=== PATIENT | female | born 1995 | race African-American/Black ===

== ENCOUNTER 2017-06-18 22:03 | Emergency (ER) | payer OTHER ==
[2017-06-19 07:30] LABS: NEGATIVE OBC STREP NEG; POSITIVE OBC STREP POS
== END 2017-06-18 22:30 | disposition home or self-care (01) ==
LOC: ER 22:03
DX: J02.9 Acute pharyngitis, unspecified (principal); J34.89 Other specified disorders of nose and nasal sinuses; Z91.013 Allergy to seafood
CPT/HCPCS: 87070; 87880; 99283

== ENCOUNTER 2017-08-31 01:55 | Emergency (ER) | payer OTHER ==
[2017-08-31] MEDS: KETOROLAC 30 MG/ML INJ. IM (03:43)
[2017-08-31 03:46] LABS: URINE HCG POC HCG NEGATIVE (Negative)
== END 2017-08-31 03:51 | disposition home or self-care (01) ==
LOC: ER 01:55
DX: R09.81 Nasal congestion (principal); Z91.013 Allergy to seafood
CPT/HCPCS: 81025; 96372; 99283-25; J1885

== ENCOUNTER 2017-10-04 13:08 | Emergency (ER) | payer OTHER ==
[2017-10-05 07:02] LABS: NEGATIVE OBC STREP NEG; POSITIVE OBC STREP POS
== END 2017-10-04 13:54 | disposition home or self-care (01) ==
LOC: ER 13:54
DX: J02.9 Acute pharyngitis, unspecified (principal); Z91.013 Allergy to seafood
CPT/HCPCS: 87070; 87880; 99284

== ENCOUNTER 2017-10-17 20:23 | Emergency (ER) | payer OTHER ==
[2017-10-17] MEDS: HYDROcodon/APAP 7.5/325MG ORAL 15 ML SOLUTION PO (20:51)
[2017-10-17] MEDS: methylPREDNISolone SOD SUCC PF 125 MG/2 ML VIAL. IM (20:52)
== END 2017-10-17 21:30 | disposition home or self-care (01) ==
LOC: ER 20:23
DX: J02.9 Acute pharyngitis, unspecified (principal); Z91.013 Allergy to seafood
CPT/HCPCS: 96372; 99283; J2930

== ENCOUNTER 2018-02-04 23:21 | Emergency (ER) | payer OTHER ==
[~2018-02-04] VITALS: Ht 170.2 cm; Wt 77.1 kg
[~2018-02-04 23:21] MED LIST: AMOX400S2 PO; AMOX500C PO; METH4TAB2 PO
[2018-02-04 23:47] VITALS: BP 134/60
[2018-02-05] MEDS ORDERED: PRED20TA PO ×2 (00:07→00:10)
--- NOTE | 2018-02-05 00:08 | PHYS DOC ---
Past Medical History Past Medical History: No Pertinent History Additional Past Medical Histor: TONSILITIS Past Surgical History: Tonsillectomy, Other Additional Past Surgical Histo: THYROID Alcohol Use: Occasionally Drug Use: None Adult General Chief Complaint Chief Complaint: SKIN RASH/ABSCESS HPI HPI Patient is a 22 year old F who presents with bug bites to her extremities. Patient reports she woke up with them. Complains of itching. Review of Systems Review of Systems Integument: Reports multiple bug bites All other systems were reviewed and found to be within normal limits, except as documented in this note. Allergies Allergies Allergies Coded Allergies Type Severity Reaction Last Updated Verified Fish Containing Products Allergy Intermediate 08/31/17 Yes shellfish derived Allergy Intermediate 08/31/17 Yes Physical Exam Physical Exam Constitutional: Well developed, well nourished, no acute distress, non-toxic appearance. [] HENT: Normocephalic, atraumatic Eyes: PERRLA, EOMI, conjunctiva normal, no discharge. [] Neck: Normal range of motion, no tenderness, supple, no stridor. [] Skin: Warm, dry, multiple erythematous papules on extremities Neurologic: Alert and oriented X 3, normal motor function, normal sensory function, no focal deficits noted. [] Psychologic: Affect normal, judgement normal, mood normal. [] Current Patient Data Vital Signs Vital Signs Date Time Temp Pulse Resp B/P (MAP) Pulse Ox O2 Delivery O2 Flow Rate FiO2 02/04/18 23:47 98.5 87 18 134/60 (84) 97 Room Air 98.5 EKG EKG [] Radiology/Procedures Radiology/Procedures [] Course & Med Decision Making Course & Med Decision Making Pertinent Labs and Imaging studies reviewed. (See chart for details) Plan: prednisone rx, supportive care, f/u with PCP, return precautions reviewed Dragon Disclaimer Dragon Disclaimer This electronic medical record was generated, in whole or in part, using a voice recognition dictation system. Departure Departure Impression: Primary Impression: Insect bite Disposition: 01 HOME, SELF-CARE Condition: GOOD Referrals: NO PCP (PCP) Patient Instructions: Insect Bite Scripts Prednisone (PREDNISONE) 20 Mg Tablet 2 TAB PO DAILY, #10 TAB Prov: TAL CÁRDENAS MD 02/05/18 Prednisone (PREDNISONE) 20 Mg Tablet 40 MG PO DAILY, #10 TAB Prov: BTEH VALENTINO APRN 02/05/18 Problem Qualifiers Primary Impression: Insect bite Encounter type: initial encounter Qualified Codes: W57.XXXA - Bitten or stung by nonvenomous insect and other nonvenomous arthropods, initial encounter BETH VALENTINO ELASTIC YARN TWISTER Feb 05, 2018 00:08
== END 2018-02-05 00:32 | disposition home or self-care (01) ==
LOC: ER 23:21
DX: S40.862A Insect bite (nonvenomous) of left upper arm, initial encounter (principal); S40.861A Insect bite (nonvenomous) of right upper arm, initial encounter; S80.862A Insect bite (nonvenomous), left lower leg, initial encounter; S80.861A Insect bite (nonvenomous), right lower leg, initial encounter; Z91.013 Allergy to seafood; W57.XXXA Bitten or stung by nonvenomous insect and other nonvenomous arthropods, initial encounter; Y93.89 Activity, other specified; Y92.89 Other specified places as the place of occurrence of the external cause; Y99.8 Other external cause status
CPT/HCPCS: 99283

== ENCOUNTER 2018-03-09 12:17 | Emergency (ER) | payer OTHER ==
[~2018-03-09] VITALS: Ht 170.2 cm; Wt 74.8 kg
[~2018-03-09 12:17] MED LIST changes: +AMOX875T PO; +PRED20TA PO
[2018-03-09 13:29] LABS: BILIRUBIN,URINE NEGATIVE (NEG); CLARITY,URINE CLEAR; COLOR,URINE YELLOW; NITRITE,URINE NEGATIVE (NEG); PH,URINE 7.5; PROTEIN,URINE NEGATIVE (NEG-TRACE); UROBILINOGEN,URINE 0.2 mg/dL (0.2 mg/dL)
[2018-03-09 13:34] LABS: BARBITURATES NEG (NEG); BENZODIAZEPINES NEG (NEG); CANNABINOIDS NEG (NEG); COCAINE NEG (NEG); METHADONE NEG (NEG); OPIATES NEG (NEG); PHENCYCLIDINE NEG (NEG)
[2018-03-09 13:37] LABS: BASO # 0.1 x10^3/uL (0.0-0.2); BASO % 1 % (0-3); EOS # 0.1 x10^3/uL (0.0-0.7); EOS % 1 % (0-3); HEMATOCRIT 36.3 % (36.0-47.0); HEMOGLOBIN 12.8 g/dL (12.0-15.5); LYMPH % 15 % (24-48); MEAN CORPUSCULAR HEMOGLOBIN 31 pg (25-35); MEAN CORPUSCULAR HGB CONC 35 g/dL (31-37); MEAN CORPUSCULAR VOLUME 88 fL (79-100); MONO # 0.6 x10^3/uL (0.0-1.1); MONO % 8 % (0-9); NEUT % 75 % (31-73); PLATELET COUNT 205 x10^3/uL (140-400); RED BLOOD COUNT 4.12 x10^6/uL (3.50-5.40); RED CELL DISTRIBUTION WIDTH 13.1 % (11.5-14.5); WHITE BLOOD COUNT 6.7 x10^3/uL (4.0-11.0)
[2018-03-09 13:37] LABS: AMPHETAMINE/METHAMPHETAMINE NEG (NEG)
[2018-03-09 13:55] LABS: CALCIUM 9.4 mg/dL (8.5-10.1); CREATININE 0.8 mg/dL (0.6-1.0); GFR 110.7; POTASSIUM 3.7 mmol/L (3.5-5.1)
[2018-03-09 13:56] LABS: BACTERIA,URINE FEW /HPF (0-FEW); SQUAMOUS EPITHELIAL CELL,UR MANY /LPF
[2018-03-09 14:04] LABS: ALBUMIN 3.6 g/dL (3.4-5.0); ALBUMIN/GLOBULIN RATIO 0.9 (1.0-1.7); TOTAL BILIRUBIN 0.6 mg/dL (0.2-1.0); TOTAL PROTEIN 7.4 g/dL (6.4-8.2)
--- NOTE | 2018-03-09 14:46 | PHYS DOC ---
Past Medical History Past Medical History: No Pertinent History Additional Past Medical Histor: TONSILITIS Past Surgical History: Tonsillectomy, Other Additional Past Surgical Histo: THYROID Alcohol Use: Occasionally Drug Use: None Adult General Chief Complaint Chief Complaint: ABDOMINAL PAIN IN HPI HPI Patient is a 22 year old female with no significant medical history who presents today complaining of abdominal pain in . Patient rates the pain as 10 out of 10 describes it as cramping. She states the pain began 3 days ago. She states she had vaginal spotting 3 days ago. Patient denies any nausea vomiting. Denies any urgency frequency dysuria. LMP 02/05/2018. Review of Systems Review of Systems Constitutional: Denies fever or chills [] Eyes: Denies change in visual acuity, redness, or eye pain [] HENT: Denies nasal congestion or sore throat [] Respiratory: Denies cough or shortness of breath [] Cardiovascular: No additional information not addressed in HPI [] GI: Reports abdominal pain/cramping in , denies, nausea, vomiting, bloody stools or diarrhea [] : Denies dysuria or hematuria [] Musculoskeletal: Denies back pain or joint pain [] Integument: Denies rash or skin lesions [] Neurologic: Denies headache, focal weakness or sensory changes [] All other systems were reviewed and found to be within normal limits, except as documented in this note. Allergies Allergies Allergies Coded Allergies Type Severity Reaction Last Updated Verified Fish Containing Products Allergy Intermediate 08/31/17 Yes shellfish derived Allergy Intermediate 08/31/17 Yes Physical Exam Physical Exam Constitutional: Well developed, well nourished, no acute distress, non-toxic appearance. [] HENT: Normocephalic, atraumatic, bilateral external ears normal, oropharynx moist, no oral exudates, nose normal. [] Eyes: PERRLA, EOMI, conjunctiva normal, no discharge. [] Neck: Normal range of motion, no tenderness, supple, no stridor. [] Cardiovascular:Heart rate regular rhythm, no murmur [] Lungs & Thorax: Bilateral breath sounds clear to auscultation [] Abdomen: Bowel sounds normal, soft, no tenderness, no masses, no pulsatile masses. [] Pelvic exam External pelvic appears normal, cervix is closed, no CMT, no adnexal tenderness , mild amount of thick white discharge in the vaginal vault. No bleeding. Skin: Warm, dry, no erythema, no rash. [] Back: No tenderness, no CVA tenderness. [] Extremities: No tenderness, no cyanosis, no clubbing, ROM intact, no edema. [] Neurologic: Alert and oriented X 3, normal motor function, normal sensory function, no focal deficits noted. [] Psychologic: Affect normal, judgement normal, mood normal. [] Current Patient Data Vital Signs Vital Signs Date Time Temp Pulse Resp B/P (MAP) Pulse Ox O2 Delivery O2 Flow Rate FiO2 03/09/18 15:00 73 17 107/67 (80) 100 Room Air 03/09/18 12:48 97.7 97.7 Lab Values Laboratory Tests Test 03/09/18 12:50 03/09/18 13:05 03/09/18 13:08 03/09/18 13:25 Chlamydia DNA Probe Positive (Negative) A Neisseria gonorrhoeae DNA Probe Negative (Negative) Urine Collection Type Unknown Urine Color Yellow Urine Clarity Clear Urine pH 7.5 Urine Specific [place] 1.015 Urine Protein Negative mg/dL (NEG-TRACE) Urine Glucose (UA) Negative mg/dL (NEG) Urine Ketones (Stick) Negative mg/dL (NEG) Urine Blood Small (NEG) Urine Nitrite Negative (NEG) Urine Bilirubin Negative (NEG) Urine Urobilinogen Dipstick 0.2 mg/dL (0.2 mg/dL) Urine Leukocyte Esterase Trace (NEG) Urine RBC 3-5 /HPF (0-2) Urine WBC 1-4 /HPF (0-4) Urine Squamous Epithelial Cells Many /LPF Urine Bacteria Few /HPF (0-FEW) Urine Opiates Screen Neg (NEG) Urine Methadone Screen Neg (NEG) Urine Barbiturates Neg (NEG) Urine Phencyclidine Screen Neg (NEG) Urine Amphetamine/Methamphetamine Neg (NEG) Urine Benzodiazepines Screen Neg (NEG) Urine Cocaine Screen Neg (NEG) Urine Cannabinoids Screen Neg (NEG) Urine Ethyl Alcohol Neg (NEG) POC Urine HCG, Qualitative Hcg positive (Negative) White Blood Count 6.7 x10^3/uL (4.0-11.0) Red Blood Count 4.12 x10^6/uL (3.50-5.40) Hemoglobin 12.8 g/dL (12.0-15.5) Hematocrit 36.3 % (36.0-47.0) Mean Corpuscular Volume 88 fL (79-100) Mean Corpuscular Hemoglobin 31 pg (25-35) Mean Corpuscular Hemoglobin Concent 35 g/dL (31-37) Red Cell Distribution Width 13.1 % (11.5-14.5) Platelet Count 205 x10^3/uL (140-400) Neutrophils (%) (Auto) 75 % (31-73) H Lymphocytes (%) (Auto) 15 % (24-48) L Monocytes (%) (Auto) 8 % (0-9) Eosinophils (%) (Auto) 1 % (0-3) Basophils (%) (Auto) 1 % (0-3) Neutrophils # (Auto) 5.0 x10^3uL (1.8-7.7) Lymphocytes # (Auto) 1.0 x10^3/uL (1.0-4.8) Monocytes # (Auto) 0.6 x10^3/uL (0.0-1.1) Eosinophils # (Auto) 0.1 x10^3/uL (0.0-0.7) Basophils # (Auto) 0.1 x10^3/uL (0.0-0.2) Maternal Serum HCG Beta Subunit 892 mIU/mL (0-5) H Sodium Level 139 mmol/L (136-145) Potassium Level 3.7 mmol/L (3.5-5.1) Chloride Level 103 mmol/L (98-107) Carbon Dioxide Level 27 mmol/L (21-32) Anion Gap 9 (6-14) Blood Urea Nitrogen 9 mg/dL (7-20) Creatinine 0.8 mg/dL (0.6-1.0) Estimated GFR (Cockcroft-Gault) 110.7 BUN/Creatinine Ratio 11 (6-20) Glucose Level 84 mg/dL (70-99) Calcium Level 9.4 mg/dL (8.5-10.1) Total Bilirubin 0.6 mg/dL (0.2-1.0) Aspartate Amino Transferase (AST) 15 U/L (15-37) Alanine Aminotransferase (ALT) 18 U/L (14-59) Alkaline Phosphatase 83 U/L (46-116) Total Protein 7.4 g/dL (6.4-8.2) Albumin 3.6 g/dL (3.4-5.0) Albumin/Globulin Ratio 0.9 (1.0-1.7) L Lipase 90 U/L (73-393) Ethyl Alcohol Level < 10 mg/dL (0-10) Laboratory Tests 03/09/18 13:25 Laboratory Tests 03/09/18 13:25 Microbiology 03/09/18 Wet Prep - Final, Complete 03/09/18 Urine Culture - Final, Complete 03/09/18 Urine Culture Result 1 (VICENTE) - Final, Complete EKG EKG [] Radiology/Procedures Radiology/Procedures [] Course & Med Decision Making Course & Med Decision Making Pertinent Labs and Imaging studies reviewed. (See chart for details) This is a 22-year-old female patient 2 para 1 currently presenting to the ED today with complaints of abdominal pain/cramping for 3 days. CBC with normal WBC, normal hemoglobin and hematocrit. CMP would not acute findings, positive urine hCG, UA negative for UTI. Blood group all positive. White prep positive for yeast as well as bacterial vaginosis. Patient was discharged with Flagyl. Instructed to use [id number] miconazole for the yeast infection. Preliminary OB ultrasound was noted for Gestational sack 5 weeks 0 days, no pole, left hemorrhagic cyst. Beta HCG 892. Patient was provided an TALENT AGENT for follow-up as an outpatient in 2 days for repeat Hcg, was provided proper return precautions. She was discharged in stable condition. Staff Physician Addendum: I was working in the ER during the course of this patient's visit. I was available for consultation as needed, but I was not directly involved in the care of this patient. Dragon Disclaimer Dragon Disclaimer This electronic medical record was generated, in whole or in part, using a voice recognition dictation system. Departure Departure Impression: Primary Impression: Abdominal pain during Additional Impressions: Bacterial vaginosis Yeast infection Threatened Disposition: 01 HOME, SELF-CARE Condition: STABLE Referrals: NO PCP (PCP) JAIME TEE MD Contact the office tomorrow and set up a follow-up appointment in 2 days Patient Instructions: Bacterial Vaginosis, Candidal Vulvovaginitis, Easy-to- Read, Threatened Miscarriage, [id number] Additional Instructions: You were evaluated in the emergency room for abdominal pain in . You have a yeast infection as well as bacterial vaginosis. We put you on Flagyl for bacterial vaginosis. Use [id number] miconazole to clear the yeast infection. Maintain bedrest, do not do any strenuous activities. Contact the provided TALENT AGENT in follow-up in 2 days for repeat blood work. Come back to the emergency room at any point symptoms worsen. Scripts Metronidazole (FLAGYL) 500 Mg Tablet 1 TAB PO BID, #14 TAB Prov: BE JAY APRN 03/09/18 Problem Qualifiers Primary Impression: Abdominal pain during Trimester: first trimester Qualified Codes: O26.891 - Other specified related conditions, first trimester; R10.9 - Unspecified abdominal pain BE JAY APRN Mar 09, 2018 14:46 TAL CÁRDENAS MD Mar 11, 2018 06:44
[2018-03-09 15:00] VITALS: BP 107/67
[2018-03-09] MEDS ORDERED: METR500T PO (15:04)
--- NOTE | 2018-03-09 15:38 | RAD ---
Obstetrical ultrasound, 03/09/2018: HISTORY: Spotting, Transabdominal and transvaginal scans were obtained. The transvaginal scans demonstrate thickening of the central uterine echo complex. There is a tiny cystic structure with an echogenic rim within the thickened endometrium compatible with a gestational sac. It measures only 2-3 mm. No yolk sac or pole is identified, however, that is not abnormal at this early stage. The uterus is otherwise unremarkable. The ovaries are of normal size. Tiny follicular cysts are present in the right ovary. There is a 1.9 cm isoechoic structure in the left ovary which may be a hemorrhagic cyst. The adnexal regions are otherwise unremarkable. No free fluid is evident in the pelvis. IMPRESSION: 1. Very early IUP as described above. 2. Small hemorrhagic cyst in the left ovary. Electronically signed by: Oskar Rodriguez MD (03/09/2018 3:35 PM) [facility]
[2018-03-10 15:28] LABS: GC PROBE Negative (Negative)
== END 2018-03-09 15:22 | disposition home or self-care (01) ==
LOC: ER 12:17
DX: O20.0 Threatened abortion (principal); O26.891 Other specified pregnancy related conditions, first trimester; R10.9 Unspecified abdominal pain; N76.0 Acute vaginitis; B37.9 Candidiasis, unspecified; Z3A.00 Weeks of gestation of pregnancy not specified; Z91.013 Allergy to seafood
CPT/HCPCS: 36415; 76801; 76817; 80053; 80307; 81001; 81025; 83690; 84702; 85025; 86850; 86900; 86901; 87086; 87491; 87591; 99285; G0480; Q0111; G0479

== ENCOUNTER 2018-03-18 21:06 | Emergency (ER) | payer OTHER ==
[~2018-03-18] VITALS: Ht 167.6 cm; Wt 61.2 kg
[~2018-03-18 21:06] MED LIST changes: +METR500T PO
[2018-03-18 21:13] VITALS: BP 117/60
[2018-03-18 21:44] LABS: BILIRUBIN,URINE NEGATIVE (NEG); CLARITY,URINE CLEAR; COLOR,URINE YELLOW; NITRITE,URINE NEGATIVE (NEG); PROTEIN,URINE NEGATIVE (NEG-TRACE); UROBILINOGEN,URINE 0.2 mg/dL (0.2 mg/dL)
[2018-03-18 21:54] LABS: BACTERIA,URINE MODERATE /HPF (0-FEW); RBC,URINE RARE /HPF (0-2); SQUAMOUS EPITHELIAL CELL,UR FEW /LPF; WBC,URINE OCC /HPF (0-4)
[2018-03-18 22:19] LABS: BASO % 1 % (0-3); EOS # 0.1 x10^3/uL (0.0-0.7); EOS % 1 % (0-3); HEMATOCRIT 34.7 % (36.0-47.0); LYMPH # 1.9 x10^3/uL (1.0-4.8); LYMPH % 22 % (24-48); MEAN CORPUSCULAR HEMOGLOBIN 30 pg (25-35); MEAN CORPUSCULAR HGB CONC 35 g/dL (31-37); MEAN CORPUSCULAR VOLUME 88 fL (79-100); MONO # 0.7 x10^3/uL (0.0-1.1); MONO % 8 % (0-9); NEUT % 69 % (31-73); PLATELET COUNT 200 x10^3/uL (140-400); RED BLOOD COUNT 3.95 x10^6/uL (3.50-5.40); RED CELL DISTRIBUTION WIDTH 12.4 % (11.5-14.5); WHITE BLOOD COUNT 8.7 x10^3/uL (4.0-11.0)
[2018-03-18 22:26] LABS: CALCIUM 9.3 mg/dL (8.5-10.1); CREATININE 0.7 mg/dL (0.6-1.0); GFR 129.1; POTASSIUM 3.7 mmol/L (3.5-5.1)
--- NOTE | 2018-03-18 22:30 | PHYS DOC ---
Past Medical History Past Medical History: No Pertinent History Additional Past Medical Histor: TONSILITIS Past Surgical History: Tonsillectomy, Other Additional Past Surgical Histo: CYST REMOVED FROM THYROID Alcohol Use: None Drug Use: None Adult General Chief Complaint Chief Complaint: VAGINAL BLEEDING HPI HPI Patient is a 22 year old female 2 para 1 currently 6 weeks presenting today complaining of 10 out of 10 cramping lower abdominal pain that began a couple minutes prior to coming to the ED. Patient is also complaining of blood when she wiped herself after voiding. A shunt denies any nausea vomiting. Denies any fever. She states she was seen in the ED at the end of February with similar symptoms. She states she has not followed up with an OB/ [employer] yet followed up with a clinic. Last menstrual cycle February 05, 2018 Review of Systems Review of Systems Constitutional: Denies fever or chills [] Eyes: Denies change in visual acuity, redness, or eye pain [] HENT: Denies nasal congestion or sore throat [] Respiratory: Denies cough or shortness of breath [] Cardiovascular: No additional information not addressed in HPI [] GI: Reports abdominal pain in , reports voiding. Denies nausea, vomiting, bloody stools or diarrhea [] : Denies dysuria or hematuria [] Musculoskeletal: Denies back pain or joint pain [] Integument: Denies rash or skin lesions [] Neurologic: Denies headache, focal weakness or sensory changes [] All other systems were reviewed and found to be within normal limits, except as documented in this note. Allergies Allergies Allergies Coded Allergies Type Severity Reaction Last Updated Verified Fish Containing Products Allergy Intermediate 08/31/17 Yes shellfish derived Allergy Intermediate 08/31/17 Yes Physical Exam Physical Exam Constitutional: Well developed, well nourished, no acute distress, non-toxic appearance. [] HENT: Normocephalic, atraumatic, bilateral external ears normal, oropharynx moist, no oral exudates, nose normal. [] Eyes: PERRLA, EOMI, conjunctiva normal, no discharge. [] Neck: Normal range of motion, no tenderness, supple, no stridor. [] Cardiovascular:Heart rate regular rhythm, no murmur [] Lungs & Thorax: Bilateral breath sounds clear to auscultation [] Abdomen: Bowel sounds normal, soft, no tenderness, no masses, no pulsatile masses. [] Pelvic exam External pelvic appears normal, cervix is closed, no CMT, no adnexal tenderness. No bleeding noted. Trace amount of white discharge in the vaginal vault. Skin: Warm, dry, no erythema, no rash. [] Back: No tenderness, no CVA tenderness. [] Extremities: No tenderness, no cyanosis, no clubbing, ROM intact, no edema. [] Neurologic: Alert and oriented X 3, normal motor function, normal sensory function, no focal deficits noted. [] Psychologic: Affect normal, judgement normal, mood normal. [] Current Patient Data Vital Signs Vital Signs Date Time Temp Pulse Resp B/P (MAP) Pulse Ox O2 Delivery O2 Flow Rate FiO2 03/18/18 21:13 97.8 76 18 117/60 (79) 99 Room Air 97.8 Lab Values Laboratory Tests Test 03/18/18 21:10 03/18/18 21:21 03/18/18 22:08 Urine Collection Type Unknown Urine Color Yellow Urine Clarity Clear Urine pH 6.0 Urine Specific [place] 1.015 Urine Protein Negative mg/dL (NEG-TRACE) Urine Glucose (UA) Negative mg/dL (NEG) Urine Ketones (Stick) Negative mg/dL (NEG) Urine Blood Small (NEG) Urine Nitrite Negative (NEG) Urine Bilirubin Negative (NEG) Urine Urobilinogen Dipstick 0.2 mg/dL (0.2 mg/dL) Urine Leukocyte Esterase Small (NEG) Urine RBC Rare /HPF (0-2) Urine WBC Occ /HPF (0-4) Urine Squamous Epithelial Cells Few /LPF Urine Bacteria Moderate /HPF (0-FEW) POC Urine HCG, Qualitative Hcg positive (Negative) White Blood Count 8.7 x10^3/uL (4.0-11.0) Red Blood Count 3.95 x10^6/uL (3.50-5.40) Hemoglobin 12.0 g/dL (12.0-15.5) Hematocrit 34.7 % (36.0-47.0) L Mean Corpuscular Volume 88 fL (79-100) Mean Corpuscular Hemoglobin 30 pg (25-35) Mean Corpuscular Hemoglobin Concent 35 g/dL (31-37) Red Cell Distribution Width 12.4 % (11.5-14.5) Platelet Count 200 x10^3/uL (140-400) Neutrophils (%) (Auto) 69 % (31-73) Lymphocytes (%) (Auto) 22 % (24-48) L Monocytes (%) (Auto) 8 % (0-9) Eosinophils (%) (Auto) 1 % (0-3) Basophils (%) (Auto) 1 % (0-3) Neutrophils # (Auto) 6.0 x10^3uL (1.8-7.7) Lymphocytes # (Auto) 1.9 x10^3/uL (1.0-4.8) Monocytes # (Auto) 0.7 x10^3/uL (0.0-1.1) Eosinophils # (Auto) 0.1 x10^3/uL (0.0-0.7) Basophils # (Auto) 0.0 x10^3/uL (0.0-0.2) Maternal Serum HCG Beta Subunit 75398 mIU/mL (0-5) H Sodium Level 139 mmol/L (136-145) Potassium Level 3.7 mmol/L (3.5-5.1) Chloride Level 103 mmol/L (98-107) Carbon Dioxide Level 24 mmol/L (21-32) Anion Gap 12 (6-14) Blood Urea Nitrogen 10 mg/dL (7-20) Creatinine 0.7 mg/dL (0.6-1.0) Estimated GFR (Cockcroft-Gault) 129.1 BUN/Creatinine Ratio 14 (6-20) Glucose Level 85 mg/dL (70-99) Calcium Level 9.3 mg/dL (8.5-10.1) Total Bilirubin 0.3 mg/dL (0.2-1.0) Aspartate Amino Transferase (AST) 17 U/L (15-37) Alanine Aminotransferase (ALT) 21 U/L (14-59) Alkaline Phosphatase 79 U/L (46-116) Total Protein 7.6 g/dL (6.4-8.2) Albumin 3.6 g/dL (3.4-5.0) Albumin/Globulin Ratio 0.9 (1.0-1.7) L Laboratory Tests 03/18/18 22:08 Laboratory Tests 03/18/18 22:08 Microbiology 03/18/18 Wet Prep - Final, Complete EKG EKG [] Radiology/Procedures Radiology/Procedures []PROCEDURE: OB <14 WKS W/TV OB ultrasound less than 14 weeks to include transabdominal and transvaginal imaging 03/18/2018 CLINICAL HISTORY: First trimester with vaginal bleeding for one day. TECHNIQUE: Using the distended urinary bladder as a sonographic window, a real-time ultrasound examination of the pelvis was performed. Additionally in an attempt to better evaluate the uterus and adnexa, a transvaginal ultrasound study was performed. Multiple images were obtained. FINDINGS: Comparison study is dated 03/09/2018. A gestational sac is seen within the endometrial canal within the body/fundus of the uterus. Within this gestational sac a yolk sac and associated embryonic pole are seen. The CRL of this embryonic pole measures 3.1 mm. This corresponds to an estimated gestational age by ultrasound of 5 weeks 6 days plus or minus a standard deviation of 4 days. Embryonic cardiac activity is seen with a heart rate of 92 beats per minutes. Since the previous examination there has been appropriate interval growth. The placenta is not yet developed. The amniotic fluid volume is within normal limits. No additional abnormality of the uterus is seen. Both ovaries are within normal limits in size and echogenicity. The left ovary measures 3.0 x 1.6 x 2.2 cm in size. The right ovary measures 1.9 x 2.6 x 2.1 cm in size. No adnexal mass is seen. No free fluid is noted. IMPRESSION: Single living IUP with an estimated gestational age by ultrasound of 5 weeks 6 days plus or minus a standard deviation of 4 days. Electronically signed by: Edilberto Cummings MD (03/18/2018 11:22 PM) [facility] DICTATED and SIGNED BY: EDILBERTO CUMMINGS MD DATE: 03/18/18 5058 Course & Med Decision Making Course & Med Decision Making Pertinent Labs and Imaging studies reviewed. (See chart for details) This is a 22-year-old female patient presented to the ED today complaining of abdominal pain in and spotting. Symptoms began today. She is a 2 para 1. Currently 6 weeks . On physical exam patient did not have any bleeding. Her blood group is O+ from her previous visit last month. Hemoglobin 12.0, hematocrit 34.7, WBCs normal. CMP would not acute findings, OB ultrasound was noted for single IUP 5 weeks 6 days. Beta hCG 57170. Wet prep positive for BV, discharge and Flagyl. Positive for UTI, discharged with cephalexin. Patient was provided BOILER WASHER for follow-up in 2 days for repeat beta hCG. Monica Disclaimer Monica Disclaimer This electronic medical record was generated, in whole or in part, using a voice recognition dictation system. Departure Departure Impression: Primary Impression: Abdominal pain during Additional Impressions: Bacterial vaginosis Urinary tract infection during Disposition: HOME, SELF-CARE Condition: STABLE Referrals: NO PCP (PCP) ELIU ZAVALA MD Follow up in 2 days Patient Instructions: Abdominal Pain During , [id number], Bacterial Vaginosis, [id number], Urinary Tract Infection Additional Instructions: You were seen for abdominal pain in . You tested positive for urinary tract infection as well as bacterial vaginosis, complete your antibiotics. Please follow-up with the provided BOILER WASHER in 2 days for repeat lab work. Come back to the emergency room at any point symptoms worsen. You can take Tylenol as needed for pain. Scripts Metronidazole (FLAGYL) 500 Mg Tablet 1 TAB PO BID, #14 TAB Prov: BE JAY APRN 03/18/18 Cephalexin (CEPHALEXIN) 500 Mg Tablet 1 TAB PO BID, #14 TAB Prov: BE JAY APRN 03/18/18 Problem Qualifiers Primary Impression: Abdominal pain during Trimester: first trimester Qualified Codes: O26.891 - Other specified related conditions, first trimester; R10.9 - Unspecified abdominal pain Additional Impressions: Urinary tract infection during Trimester: first trimester Qualified Codes: O23.41 - Unspecified infection of urinary tract in , first trimester BE JAY APRN Mar 18, 2018 22:30
[2018-03-18 22:33] LABS: ALBUMIN 3.6 g/dL (3.4-5.0); ALBUMIN/GLOBULIN RATIO 0.9 (1.0-1.7); TOTAL BILIRUBIN 0.3 mg/dL (0.2-1.0); TOTAL PROTEIN 7.6 g/dL (6.4-8.2)
--- NOTE | 2018-03-18 23:26 | RAD ---
OB ultrasound less than 14 weeks to include transabdominal and transvaginal imaging 03/18/2018 CLINICAL HISTORY: First trimester with vaginal bleeding for one day. TECHNIQUE: Using the distended urinary bladder as a sonographic window, a real-time ultrasound examination of the pelvis was performed. Additionally in an attempt to better evaluate the uterus and adnexa, a transvaginal ultrasound study was performed. Multiple images were obtained. FINDINGS: Comparison study is dated 03/09/2018. A gestational sac is seen within the endometrial canal within the body/fundus of the uterus. Within this gestational sac a yolk sac and associated embryonic pole are seen. The CRL of this embryonic pole measures 3.1 mm. This corresponds to an estimated gestational age by ultrasound of 5 weeks 6 days plus or minus a standard deviation of 4 days. Embryonic cardiac activity is seen with a heart rate of 92 beats per minutes. Since the previous examination there has been appropriate interval growth. The placenta is not yet developed. The amniotic fluid volume is within normal limits. No additional abnormality of the uterus is seen. Both ovaries are within normal limits in size and echogenicity. The left ovary measures 3.0 x 1.6 x 2.2 cm in size. The right ovary measures 1.9 x 2.6 x 2.1 cm in size. No adnexal mass is seen. No free fluid is noted. IMPRESSION: Single living IUP with an estimated gestational age by ultrasound of 5 weeks 6 days plus or minus a standard deviation of 4 days. Electronically signed by: Edilberto Mason MD (03/18/2018 11:22 PM) [facility]
[2018-03-18] MEDS ORDERED: CEPH500T PO (23:51)
[2018-03-18] MEDS ORDERED: METR500T PO (23:51)
[2018-03-20 15:28] LABS: GC PROBE Negative (Negative)
== END 2018-03-19 00:05 | disposition home or self-care (01) ==
LOC: ER 21:06
DX: O23.41 Unspecified infection of urinary tract in pregnancy, first trimester (principal); O23.591 Infection of other part of genital tract in pregnancy, first trimester; N76.0 Acute vaginitis; B96.89 Other specified bacterial agents as the cause of diseases classified elsewhere; Z3A.01 Less than 8 weeks gestation of pregnancy; Z91.013 Allergy to seafood
CPT/HCPCS: 36415; 76801; 76817; 80053; 81001; 81025; 84702; 85025; 87086; 87491; 87591; 99285; Q0111

== ENCOUNTER 2018-04-29 19:09 | Emergency (ER) | payer OTHER ==
[~2018-04-29] VITALS: Ht 170.2 cm; Wt 77.1 kg
[~2018-04-29 19:09] MED LIST changes: +CEPH500T PO
[2018-04-29 19:39] LABS: BILIRUBIN,URINE NEGATIVE (NEG); CLARITY,URINE CLEAR; COLOR,URINE YELLOW; NITRITE,URINE NEGATIVE (NEG); PROTEIN,URINE NEGATIVE (NEG-TRACE); UROBILINOGEN,URINE 0.2 mg/dL (0.2 mg/dL)
[2018-04-29 19:49] LABS: BACTERIA,URINE MODERATE /HPF (0-FEW); SQUAMOUS EPITHELIAL CELL,UR MOD /LPF
[2018-04-29 19:52] LABS: BASO % 1 % (0-3); EOS # 0.1 x10^3/uL (0.0-0.7); EOS % 1 % (0-3); HEMATOCRIT 33.7 % (36.0-47.0); HEMOGLOBIN 11.8 g/dL (12.0-15.5); LYMPH # 1.5 x10^3/uL (1.0-4.8); LYMPH % 19 % (24-48); MEAN CORPUSCULAR HEMOGLOBIN 30 pg (25-35); MEAN CORPUSCULAR HGB CONC 35 g/dL (31-37); MEAN CORPUSCULAR VOLUME 87 fL (79-100); MONO # 0.5 x10^3/uL (0.0-1.1); MONO % 7 % (0-9); NEUT # 5.9 x10^3uL (1.8-7.7); NEUT % 74 % (31-73); PLATELET COUNT 188 x10^3/uL (140-400); RED BLOOD COUNT 3.88 x10^6/uL (3.50-5.40); RED CELL DISTRIBUTION WIDTH 12.9 % (11.5-14.5); WHITE BLOOD COUNT 8.1 x10^3/uL (4.0-11.0)
[2018-04-29 19:59] LABS: CALCIUM 9.2 mg/dL (8.5-10.1); CREATININE 0.7 mg/dL (0.6-1.0); GFR 129.1; POTASSIUM 3.7 mmol/L (3.5-5.1)
[2018-04-29 20:05] LABS: ALBUMIN 3.4 g/dL (3.4-5.0); ALBUMIN/GLOBULIN RATIO 0.8 (1.0-1.7); TOTAL BILIRUBIN 0.3 mg/dL (0.2-1.0); TOTAL PROTEIN 7.6 g/dL (6.4-8.2)
[2018-04-29 20:50] VITALS: BP 96/63
[2018-04-29] MEDS ORDERED: NITR100C62 PO (21:48)
--- NOTE | 2018-04-29 21:49 | PHYS DOC ---
Past Medical History Past Medical History: No Pertinent History Additional Past Medical Histor: TONSILITIS Past Surgical History: Tonsillectomy, Other Additional Past Surgical Histo: CYST REMOVED FROM THYROID Alcohol Use: None Drug Use: None Adult General Chief Complaint Chief Complaint: GI PROBLEM HPI [facility] Patient is a 22 year old female who presents with abdominal pain and . The patient states that she went to yesterday and was worked up for the exact same condition. She states that they did not give her any answers as to why she is having abdominal pain. She's been seen at this facility twice since this current for similar symptoms. She denies vaginal bleeding or discharge. She states that she has been seeing an knot cutter at but is planning on changing to an OB with [facility]. Review of Systems Review of Systems Constitutional: Denies fever or chills [] Respiratory: Denies cough or shortness of breath [] Cardiovascular: No additional information not addressed in HPI [] GI: See history of present illness : Denies dysuria or hematuria [] Musculoskeletal: Denies back pain or joint pain [] Integument: Denies rash or skin lesions [] Neurologic: Denies headache, focal weakness or sensory changes [] Endocrine: Denies polyuria or polydipsia [] All other systems were reviewed and found to be within normal limits, except as documented in this note. Allergies Allergies Allergies Coded Allergies Type Severity Reaction Last Updated Verified Fish Containing Products Allergy Intermediate 08/31/17 Yes shellfish derived Allergy Intermediate 08/31/17 Yes Physical Exam Physical Exam Constitutional: Well developed, well nourished, no acute distress, non-toxic appearance. [] Cardiovascular:Heart rate regular rhythm, no murmur [] Lungs & Thorax: Bilateral breath sounds clear to auscultation [] Abdomen: Bowel sounds normal, soft, mild suprapubic tenderness, no masses, no pulsatile masses. [] Skin: Warm, dry, no erythema, no rash. [] Back: No tenderness, no CVA tenderness. [] Extremities: No tenderness, no cyanosis, no clubbing, ROM intact, no edema. [] Neurologic: Alert and oriented X 3, normal motor function, normal sensory function, no focal deficits noted. [] Psychologic: Affect normal, judgement normal, mood normal. [] Current Patient Data Vital Signs Vital Signs Date Time Temp Pulse Resp B/P (MAP) Pulse Ox O2 Delivery O2 Flow Rate FiO2 04/29/18 20:50 64 18 96/63 (74) 99 Room Air 04/29/18 19:21 98.6 98.6 Lab Values Laboratory Tests Test 04/29/18 19:30 04/29/18 19:45 Urine Collection Type Unknown Urine Color Yellow Urine Clarity Clear Urine pH 6.0 Urine Specific [place] 1.020 Urine Protein Negative mg/dL (NEG-TRACE) Urine Glucose (UA) Negative mg/dL (NEG) Urine Ketones (Stick) Trace mg/dL (NEG) Urine Blood Moderate (NEG) Urine Nitrite Negative (NEG) Urine Bilirubin Negative (NEG) Urine Urobilinogen Dipstick 0.2 mg/dL (0.2 mg/dL) Urine Leukocyte Esterase Small (NEG) Urine RBC 3-5 /HPF (0-2) Urine WBC 5-10 /HPF (0-4) Urine Squamous Epithelial Cells Mod /LPF Urine Bacteria Moderate /HPF (0-FEW) Urine Mucus Mod /LPF White Blood Count 8.1 x10^3/uL (4.0-11.0) Red Blood Count 3.88 x10^6/uL (3.50-5.40) Hemoglobin 11.8 g/dL (12.0-15.5) L Hematocrit 33.7 % (36.0-47.0) L Mean Corpuscular Volume 87 fL (79-100) Mean Corpuscular Hemoglobin 30 pg (25-35) Mean Corpuscular Hemoglobin Concent 35 g/dL (31-37) Red Cell Distribution Width 12.9 % (11.5-14.5) Platelet Count 188 x10^3/uL (140-400) Neutrophils (%) (Auto) 74 % (31-73) H Lymphocytes (%) (Auto) 19 % (24-48) L Monocytes (%) (Auto) 7 % (0-9) Eosinophils (%) (Auto) 1 % (0-3) Basophils (%) (Auto) 1 % (0-3) Neutrophils # (Auto) 5.9 x10^3uL (1.8-7.7) Lymphocytes # (Auto) 1.5 x10^3/uL (1.0-4.8) Monocytes # (Auto) 0.5 x10^3/uL (0.0-1.1) Eosinophils # (Auto) 0.1 x10^3/uL (0.0-0.7) Basophils # (Auto) 0.0 x10^3/uL (0.0-0.2) Maternal Serum HCG Beta Subunit 46002 mIU/mL (0-5) H Sodium Level 136 mmol/L (136-145) Potassium Level 3.7 mmol/L (3.5-5.1) Chloride Level 101 mmol/L (98-107) Carbon Dioxide Level 25 mmol/L (21-32) Anion Gap 10 (6-14) Blood Urea Nitrogen 6 mg/dL (7-20) L Creatinine 0.7 mg/dL (0.6-1.0) Estimated GFR (Cockcroft-Gault) 129.1 BUN/Creatinine Ratio 9 (6-20) Glucose Level 84 mg/dL (70-99) Calcium Level 9.2 mg/dL (8.5-10.1) Total Bilirubin 0.3 mg/dL (0.2-1.0) Aspartate Amino Transferase (AST) 14 U/L (15-37) L Alanine Aminotransferase (ALT) 15 U/L (14-59) Alkaline Phosphatase 65 U/L (46-116) Total Protein 7.6 g/dL (6.4-8.2) Albumin 3.4 g/dL (3.4-5.0) Albumin/Globulin Ratio 0.8 (1.0-1.7) L Laboratory Tests 04/29/18 19:45 Laboratory Tests 04/29/18 19:45 EKG EKG [] Radiology/Procedures Radiology/Procedures []PATIENT: TEJINDER PATEL MACCOUNT: [id number]#: [id number] : 1995 LOCATION: ER AGE: 22 SEX: F EXAM STATUS: REG ER ORD. PHYSICIAN: OMA MAIER APRN REASON: pelvic pain PROCEDURE: OB < 14 WKS First trimester OB ultrasound dated 04/29/2018. No comparison available. CLINICAL INDICATION: Pain for 2 days. FINDINGS: Uterus measures 13.0 x 11.0 x 8.3 cm. No focal uterine mass. Gestational sac and pole within the endometrial canal. [place]-rump length measures 5.5 cm, correlating with a 12 week 1 day gestation. Estimated sonographic date of delivery of 11/10/2017. Gestational sac is normal in morphology with no subchorionic collection. pole is normal in morphology. heart rate 157 bpm. Amniotic fluid volume appears appropriate. Placenta is not well evaluated but appears to be posterior in location. Right ovary measures 2.7 x 2.0 x 1.3 cm. Left ovary measures 2.5 x 2.2 x 1.8 cm. No adnexal mass or free fluid. IMPRESSION: 1. Single viable intrauterine gestation with estimated sonographic gestational age of 12 weeks 1 day. No acute findings. Electronically signed by: Rohith Zaman MD (04/29/2018 10:08 PM) [facility] DICTATED and SIGNED BY: ROHITH ZAMAN MD DATE: 04/29/182158 Course & Med Decision Making Course & Med Decision Making Pertinent Labs and Imaging studies reviewed. (See chart for details) []The patient is positive for a urinary tract infection. She'll be treated with antibiotics. Her ultrasound was negative for an acute abnormality. She is to follow-up with obstetrics for further evaluation and management of her . Dragon Disclaimer Dragon Disclaimer This electronic medical record was generated, in whole or in part, using a voice recognition dictation system. Departure Departure Impression: Primary Impression: Abdominal pain during Additional Impression: Urinary tract infection during Disposition: 01 HOME, SELF-CARE Condition: STABLE Referrals: NO PCP (PCP) SHANIKA RANGEL Jr, MD Patient Instructions: - Urinary Tract Infection Additional Instructions: Take the antibiotic as directed. Follow-up with your bag making machine tender for recheck within 1 week. If worsening return to the emergency department. Scripts Nitrofurantoin Monohyd/M-Cryst (MACROBID 100 MG CAPSULE) 100 Mg Capsule 1 CAP PO BID for UTI, #14 CAP Prov: OMA MAIER APRN 04/29/18 Problem Qualifiers OMA MAIER APRN Apr 29, 2018 21:49
--- NOTE | 2018-04-29 22:11 | RAD ---
First trimester OB ultrasound dated 04/29/2018. No comparison available. CLINICAL INDICATION: Pain for 2 days. FINDINGS: Uterus measures 13.0 x 11.0 x 8.3 cm. No focal uterine mass. Gestational sac and pole within the endometrial canal. [place]-rump length measures 5.5 cm, correlating with a 12 week 1 day gestation. Estimated sonographic date of delivery of 11/10/2017. Gestational sac is normal in morphology with no subchorionic collection. pole is normal in morphology. heart rate 157 bpm. Amniotic fluid volume appears appropriate. Placenta is not well evaluated but appears to be posterior in location. Right ovary measures 2.7 x 2.0 x 1.3 cm. Left ovary measures 2.5 x 2.2 x 1.8 cm. No adnexal mass or free fluid. IMPRESSION: 1. Single viable intrauterine gestation with estimated sonographic gestational age of 12 weeks 1 day. No acute findings. Electronically signed by: Rohith Zaman MD (04/29/2018 10:08 PM) [facility]
== END 2018-04-29 22:04 | disposition home or self-care (01) ==
LOC: ER 19:09
DX: O23.41 Unspecified infection of urinary tract in pregnancy, first trimester (principal); R10.2 Pelvic and perineal pain; Z91.013 Allergy to seafood; Z3A.12 12 weeks gestation of pregnancy
CPT/HCPCS: 36415; 76801; 80053; 81001; 84702; 85025; 87086; 99285

== ENCOUNTER 2018-06-17 02:47 | Emergency (ER) | payer OTHER ==
[~2018-06-17] VITALS: Ht 172.7 cm; Wt 77.1 kg
[~2018-06-17 02:47] MED LIST changes: +NITR100C62 PO
[2018-06-17 03:34] VITALS: BP 109/63
[2018-06-17 03:46] LABS: BILIRUBIN,URINE NEGATIVE (NEG); CLARITY,URINE CLEAR; COLOR,URINE YELLOW; NITRITE,URINE NEGATIVE (NEG); PROTEIN,URINE NEGATIVE (NEG-TRACE); UROBILINOGEN,URINE 0.2 mg/dL (0.2 mg/dL)
[2018-06-17 04:04] LABS: BACTERIA,URINE MODERATE /HPF (0-FEW); SQUAMOUS EPITHELIAL CELL,UR MANY /LPF
--- NOTE | 2018-06-17 05:08 | PHYS DOC ---
Past Medical History Past Medical History: No Pertinent History Additional Past Medical Histor: TONSILITIS Past Surgical History: Tonsillectomy, Other Additional Past Surgical Histo: CYST REMOVED FROM THYROID Alcohol Use: None Drug Use: None Adult General Chief Complaint Chief Complaint: PELVIC PAIN HPI HPI Patient is a 22 year old female presents with pressure in her buttock area she is 19 weeks and started a few hours ago. No vaginal bleeding. No significant vaginal discharge she states this pressure she says sheis not a hemorrhoid she doesn't want me to check for that. Review of Systems Review of Systems Constitutional: Denies fever or chills [] Eyes: Denies change in visual acuity, redness, or eye pain [] HENT: Denies nasal congestion or sore throat [] Respiratory: Denies cough or shortness of breath [] Cardiovascular: No additional information not addressed in HPI [] GI: Denies abdominal pain, nausea, vomiting, bloody stools or diarrhea [] : Denies dysuria or hematuria [] Musculoskeletal: Denies back pain or joint pain [] Integument: Denies rash or skin lesions [] Neurologic: Denies headache, focal weakness or sensory changes [] Endocrine: Denies polyuria or polydipsia [] All other systems were reviewed and found to be within normal limits, except as documented in this note. Allergies Allergies Allergies Coded Allergies Type Severity Reaction Last Updated Verified Fish Containing Products Allergy Intermediate 08/31/17 Yes shellfish derived Allergy Intermediate 08/31/17 Yes Physical Exam Physical Exam Constitutional: Well developed, well nourished, no acute distress, non-toxic appearance. [] HENT: Normocephalic, atraumatic, bilateral external ears normal, oropharynx moist, no oral exudates, nose normal. [] Eyes: PERRLA, EOMI, conjunctiva normal, no discharge. [] Neck: Normal range of motion, no tenderness, supple, no stridor. [] gu pelvic normal cervix no abnormality identified. Abdomen: Bowel sounds normal, soft, gravid nontender, no masses, no pulsatile masses. [] Skin: Warm, dry, no erythema, no rash. [] Back: No tenderness, no CVA tenderness. [] Extremities: No tenderness, no cyanosis, no clubbing, ROM intact, no edema. [] Neurologic: Alert and oriented X 3, normal motor function, normal sensory function, no focal deficits noted. [] Psychologic: Affect normal, judgement normal, mood normal. [] Current Patient Data Vital Signs Vital Signs Date Time Temp Pulse Resp B/P (MAP) Pulse Ox O2 Delivery O2 Flow Rate FiO2 06/17/18 03:34 77 16 109/63 (78) 99 Room Air 06/17/18 02:49 97.9 97.9 Lab Values Laboratory Tests Test 06/17/18 03:00 06/17/18 03:04 Urine Collection Type Unknown Urine Color Yellow Urine Clarity Clear Urine pH 6.0 Urine Specific [place] 1.015 Urine Protein Negative mg/dL (NEG-TRACE) Urine Glucose (UA) Negative mg/dL (NEG) Urine Ketones (Stick) Negative mg/dL (NEG) Urine Blood Small (NEG) Urine Nitrite Negative (NEG) Urine Bilirubin Negative (NEG) Urine Urobilinogen Dipstick 0.2 mg/dL (0.2 mg/dL) Urine Leukocyte Esterase Negative (NEG) Urine RBC 6-10 /HPF (0-2) Urine WBC 1-4 /HPF (0-4) Urine Squamous Epithelial Cells Many /LPF Urine Bacteria Moderate /HPF (0-FEW) POC Urine HCG, Qualitative Hcg positive (Negative) EKG EKG [] Radiology/Procedures Radiology/Procedures [] Course & Med Decision Making Course & Med Decision Making Pertinent Labs and Imaging studies reviewed. (See chart for details) []fht's 140's by ob nurse, good movement pelvic unremarkable u/a reassuring after 90 min in er she was feeling a lot better. suspect pressure from growing baby or constipation reassurance provided. Dragon Disclaimer Dragon Disclaimer This electronic medical record was generated, in whole or in part, using a voice recognition dictation system. Departure Departure Impression: Primary Impression: Pelvic pain Disposition: HOME, SELF-CARE Condition: STABLE Patient Instructions: Pelvic Pain, Female TAL CÁRDENAS MD Jun 17, 2018 05:08
[2018-06-18 13:16] LABS: GC PROBE Negative (Negative)
== END 2018-06-17 04:30 | disposition home or self-care (01) ==
LOC: ER 02:47
DX: O26.892 Other specified pregnancy related conditions, second trimester (principal); R10.2 Pelvic and perineal pain; Z3A.19 19 weeks gestation of pregnancy
CPT/HCPCS: 36415; 81001; 81025; 87086; 87491; 87591; 99283

== ENCOUNTER 2018-08-04 20:28 | Emergency (ER) | payer OTHER ==
[~2018-08-04] VITALS: Ht 170.2 cm; Wt 81.6 kg
[2018-08-04 20:40] VITALS: BP 133/56
[2018-08-04] MEDS ORDERED: AMOX875T PO (20:56)
--- NOTE | 2018-08-04 20:57 | PHYS DOC ---
Past Medical History Past Medical History: No Pertinent History Additional Past Medical Histor: TONSILITIS (OMA MAIER APRN) Past Surgical History: Tonsillectomy, Other Additional Past Surgical Histo: CYST REMOVED FROM THYROID (OMA MAIER APRN) Alcohol Use: None Drug Use: None (OMA MAIER APRN) Adult General Chief Complaint Chief Complaint: SORE THROAT [facility] HPI Patient is a 22 year old [f__sex] who presents with [] (OMA MAIER APRN) Review of Systems Review of Systems Constitutional: Denies fever or chills [] Eyes: Denies change in visual acuity, redness, or eye pain [] HENT: See history of present illness Respiratory: Denies cough or shortness of breath [] Cardiovascular: No additional information not addressed in HPI [] Musculoskeletal: Denies back pain or joint pain [] Integument: Denies rash or skin lesions [] Neurologic: Denies headache, focal weakness or sensory changes [] Endocrine: Denies polyuria or polydipsia [] All other systems were reviewed and found to be within normal limits, except as documented in this note. (OMA MAIER APRN) Allergies Allergies Allergies Coded Allergies Type Severity Reaction Last Updated Verified Fish Containing Products Allergy Intermediate 08/31/17 Yes shellfish derived Allergy Intermediate 08/31/17 Yes (TAL CÁRDENAS MD) Physical Exam Physical Exam Constitutional: Well developed, well nourished, no acute distress, non-toxic appearance. [] HENT: Normocephalic, atraumatic, bilateral external ears normal, positive pharyngeal erythema with no oral exudates, nose normal. [] Eyes: PERRLA, EOMI, conjunctiva normal, no discharge. [] Neck: Normal range of motion, positive anterior cervical lymphadenopathy, supple , no stridor. [] Cardiovascular:Heart rate regular rhythm, no murmur [] Lungs & Thorax: Bilateral breath sounds clear to auscultation [] Abdomen: Bowel sounds normal, soft, no tenderness, no masses, no pulsatile masses. [] Neurologic: Alert and oriented X 3, normal motor function, normal sensory function, no focal deficits noted. [] Psychologic: Affect normal, judgement normal, mood normal. [] (OMA MAIER APRN) Current Patient Data Vital Signs Vital Signs Date Time Temp Pulse Resp B/P (MAP) Pulse Ox O2 Delivery O2 Flow Rate FiO2 08/04/18 20:40 97.8 97 18 133/56 (81) 99 Room Air 97.8 (TAL CÁRDENAS MD) EKG EKG [] (OMA MAIER APRN) Radiology/Procedures Radiology/Procedures [] (OMA MAIER APRN) Course & Med Decision Making Course & Med Decision Making Pertinent Labs and Imaging studies reviewed. (See chart for details) [] (OMA MAIER APRN) Course & Med Decision Making Staff Physician Addendum: I was working in the ER during the course of this patient's visit. I was available for consultation as needed, but I was not directly involved in the care of this patient. (TAL CÁRDENAS MD) Dragon Disclaimer Dragon Disclaimer This electronic medical record was generated, in whole or in part, using a voice recognition dictation system. (OMA MAIER APRN) Departure Departure Impression: Primary Impression: Pharyngitis Disposition: 01 HOME, SELF-CARE Condition: STABLE Referrals: NO PCP (PCP) Patient Instructions: Viral and Bacterial Pharyngitis Additional Instructions: Take the antibiotic as directed. You may take Tylenol for pain. 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 Scripts Amoxicillin (AMOXICILLIN) 875 Mg Tablet 1 TAB PO BID for pharyngitis, #20 TAB Prov: OMA MAIER APRN 08/04/18 OMA MAIER APRN Aug 04, 2018 20:57 TAL CÁRDENAS MD Aug 05, 2018 00:31
== END 2018-08-04 21:00 | disposition home or self-care (01) ==
LOC: ER 20:28
DX: J02.9 Acute pharyngitis, unspecified (principal); R59.1 Generalized enlarged lymph nodes; Z90.89 Acquired absence of other organs; Z91.013 Allergy to seafood
CPT/HCPCS: 99283

== ENCOUNTER 2018-09-13 00:39 | Observation (INO) | payer OTHER ==
[2018-09-13] MEDS ORDERED: ACETAMINOPHEN 500 MG TABLET PO PRN (00:45)
[2018-09-13] MEDS ORDERED: IV RINGERS,LACTATED 1000ML 1,000 ML IV SCH (01:00)
[2018-09-13 01:07] LABS: BILIRUBIN,URINE NEGATIVE (NEG); CLARITY,URINE CLOUDY; COLOR,URINE YELLOW; NITRITE,URINE NEGATIVE (NEG); PROTEIN,URINE NEGATIVE (NEG-TRACE); UROBILINOGEN,URINE 0.2 mg/dL (0.2 mg/dL)
[2018-09-13 01:11] LABS: BACTERIA,URINE MANY /HPF (0-FEW); RBC,URINE OCC /HPF (0-2); SQUAMOUS EPITHELIAL CELL,UR MANY /LPF
[2018-09-13 01:15] LABS: AMPHETAMINE/METHAMPHETAMINE NEG (NEG); BARBITURATES NEG (NEG); BENZODIAZEPINES NEG (NEG); CANNABINOIDS NEG (NEG); COCAINE NEG (NEG); METHADONE NEG (NEG); OPIATES NEG (NEG); PHENCYCLIDINE NEG (NEG)
[2018-09-14] MEDS ORDERED: SELE180S3 TP (21:30)
== END 2018-09-13 01:49 | disposition home or self-care (01) ==
LOC: 3 SO LND 00:39
PROVIDERS: ADMIT Obstetrics & Gynecology; ATTEND Obstetrics & Gynecology
DX: O26.893 Other specified pregnancy related conditions, third trimester (principal); R10.31 Right lower quadrant pain; R10.32 Left lower quadrant pain; R19.7 Diarrhea, unspecified; Z3A.31 31 weeks gestation of pregnancy
CPT/HCPCS: 80307; 81001; 87086; G0379

== ENCOUNTER 2018-09-14 20:23 | Emergency (ER) | payer OTHER ==
[~2018-09-14] VITALS: Ht 170.2 cm; Wt 85.7 kg
[2018-09-14 20:30] VITALS: BP 110/61
[2018-09-14] MEDS ORDERED: SELE180S3 TP (21:30)
--- NOTE | 2018-09-14 21:30 | PHYS DOC ---
Past Medical History Past Medical History: No Pertinent History, Other Additional Past Medical Histor: TONSILITIS (ANDREEA MULLINS APRN) Past Surgical History: Tonsillectomy, Other Additional Past Surgical Histo: CYST REMOVED FROM THYROID (ANDREEA MULLINS APRN) Alcohol Use: None Drug Use: None (ANDREEA MULLINS APRN) Adult General Chief Complaint Chief Complaint: SKIN PROBLEM HPI HPI Patient is a 23 year old AA female who presents to the emergency Department today with complaints of a itchy scalp. Patient states she first noted that her scalp was itchy yesterday. Today she noticed tattered bumps on her scalp. She denies any fever, headache, or other complaints. Patient states she is currently 8 weeks , she denies any abdominal pain, back pain, cramping, vaginal bleeding, or irregular vaginal discharge. (ANDREEA MULLINS APRN) Review of Systems Review of Systems Constitutional: Denies fever or chills [] GI: Denies abdominal pain OBGyn: Denies complaints history of present illness Musculoskeletal: Denies back pain Integument: See history of present illness Neurologic: Denies headache (ANDREEA MLULINS APRN) Allergies Allergies Allergies Coded Allergies Type Severity Reaction Last Updated Verified Fish Containing Products Allergy Intermediate 08/31/17 Yes shellfish derived Allergy Intermediate 08/31/17 Yes (AG WILD DO) Physical Exam Physical Exam Constitutional: Well developed, well nourished, no acute distress, non-toxic appearance. [] HENT: Normocephalic, atraumatic, bilateral external ears normal, oropharynx moist, no oral exudates, nose normal; Eyes: PERRLA, conjunctiva normal, no discharge. [] Lungs & Thorax: Respirations even and unlabored, no retractions, no respiratory distress Skin: scalp noted to be dry with some flaking and mild areas of erythema consistent with dandruff. [] Neurologic: Alert and oriented X 3, no focal deficits noted. [] Psychologic: Affect normal, judgement normal, mood normal. [] (ANDREEA MULLINS APRN) Current Patient Data Vital Signs Vital Signs Date Time Temp Pulse Resp B/P (MAP) Pulse Ox O2 Delivery O2 Flow Rate FiO2 09/14/18 20:30 98.0 63 16 110/61 (77) 98 Room Air 98.0 (AG WILD DO) EKG EKG [] (ANDREEA MULLINS APRN) Radiology/Procedures Radiology/Procedures [] (ANDREEA MULLINS APRN) Course & Med Decision Making Course & Med Decision Making Pertinent Labs and Imaging studies reviewed. (See chart for details) dx: dandruff Rx for selenium sulfide shampoo. Follow up with dermatology on 09/16 as planned. return to ER if sx worsen. Patient verbalized an understanding of home care, medications, follow-up, and return to ED instructions and was in agreement with the plan of care. [] (ANDREEA MULLINS APRN) Dragon Disclaimer Dragon Disclaimer This electronic medical record was generated, in whole or in part, using a voice recognition dictation system. (ANDREEA MULLINS APRN) Departure Departure Impression: Primary Impression: Dandruff in adult Additional Impression: Itchy scalp Disposition: HOME, SELF-CARE Condition: STABLE Referrals: NO PCP (PCP) Patient Instructions: Selenium Sulfide shampoo Additional Instructions: Fill the prescription and use as directed. Follow up with dermatology as planned on 09/16/18, return to the ER if symptoms worsen. Scripts Selenium Sulfide (SELENIUM SULFIDE) 180 Ml Shampoo 1 UJDY TP TWICE WEEKLY for 14 Days, #1 BOTTLE 0 Refills Prov: ANDREEA MULLINS APRN 09/14/18 Attending Signature Attending Signature I have reviewed the PA/TOPOGRAPHICAL DRAFTER's note and plan of care. I was available for consultation as needed during the patient's visit in the emergency department. I agree with the clinical impression, plan, and disposition. (AG WILD DO) Problem Qualifiers ANDREEA MULLINS APRN Sep 14, 2018 21:30 AG WILD DO Oct 04, 2018 12:59
== END 2018-09-14 21:41 | disposition home or self-care (01) ==
LOC: ER 20:23
DX: O26.891 Other specified pregnancy related conditions, first trimester (principal); L21.0 Seborrhea capitis; L29.9 Pruritus, unspecified; Z91.013 Allergy to seafood; Z3A.08 8 weeks gestation of pregnancy
CPT/HCPCS: 99282

== ENCOUNTER 2019-03-10 11:44 | Emergency (ER) | payer OTHER ==
[~2019-03-10] VITALS: Ht 170.2 cm; Wt 81.6 kg
[~2019-03-10 11:44] MED LIST changes: +SELE180S9 TP
[2019-03-10 12:10] VITALS: BP 123/58
--- NOTE | 2019-03-10 12:35 | PHYS DOC ---
Past Medical History Past Medical History: No Pertinent History, Other Additional Past Medical Histor: TONSILITIS Past Surgical History: Tonsillectomy, Other Additional Past Surgical Histo: CYST REMOVED FROM THYROID Alcohol Use: None Drug Use: None Adult General Chief Complaint Chief Complaint: ABSCESS HPI HPI Patient is a 23 year old female who presents to the ED today complaining of an abscess on the left buttock that she's had for 1 month. Patient states the abscess opened up this morning and started draining. Denies any fever. Review of Systems Review of Systems Constitutional: Denies fever or chills [] Musculoskeletal: Denies back pain or joint pain [] Integument: Reports left buttock abscess Neurologic: Denies headache, focal weakness or sensory changes [] All other systems were reviewed and found to be within normal limits, except as documented in this note. Current Medications Current Medications Current Medications Medications (Trade) Dose Ordered Sig/Roxy Start Time Stop Time Status Last Admin Dose Admin Diphtheria/ Tetanus/Acell Pertussis (Boostrix) 0.5 ml ONCE ONCE 03/10/19 12:45 03/10/19 12:46 DC 03/10/19 12:46 0.5 ML Allergies Allergies Allergies Coded Allergies Type Severity Reaction Last Updated Verified Fish Containing Products Allergy Intermediate 08/31/17 Yes shellfish derived Allergy Intermediate 08/31/17 Yes Physical Exam Physical Exam Constitutional: Well developed, well nourished, no acute distress, non-toxic appearance. [] Skin: Left lower inner buttock with an open wound approximately 0.5 x 0.5 cm with surrounding erythema. The wound is draining trace amount of yellow purulent material. There is nothing more to drain. No fluctuance noted. Back: No tenderness, no CVA tenderness. [] Extremities: No tenderness, no cyanosis, no clubbing, ROM intact, no edema. [] Neurologic: Alert and oriented X 3, normal motor function, normal sensory function, no focal deficits noted. [] Psychologic: Affect normal, judgement normal, mood normal. [] Current Patient Data Vital Signs Vital Signs Date Time Temp Pulse Resp B/P (MAP) Pulse Ox O2 Delivery O2 Flow Rate FiO2 03/10/19 12:10 98.0 80 16 123/58 (79) 98 Room Air 98.0 EKG EKG [] Radiology/Procedures Radiology/Procedures [] Course & Med Decision Making Course & Med Decision Making Pertinent Labs and Imaging studies reviewed. (See chart for details) This is a 23-year-old female patient who presents to the ED today with an abscess on the left buttock that has opened up and drained she still has some erythema over this region. We will put on antibiotics and updated her tetanus. Provided return precautions. Dragon Disclaimer Dragon Disclaimer This electronic medical record was generated, in whole or in part, using a voice recognition dictation system. Departure Departure Impression: Primary Impression: Cellulitis and abscess of buttock Disposition: HOME, SELF-CARE Condition: STABLE Referrals: NO PCP (PCP) DURAN BOONE MD follow up in 1 week Patient Instructions: Abscess Additional Instructions: You were evaluated in the emergency for an abscess, we put you on antibiotics, take them as prescribed. Keep the areas clean and dry. Apply warm compresses to the area twice a day. Follow-up with your own doctor in 1-2 weeks. Scripts Acyclovir (ACYCLOVIR) 800 Mg Tablet 1 TAB PO 5XDAY, #50 TAB 1 Refill Prov: BE JAY APRN 03/10/19 Sulfamethoxazole/Trimethoprim (BACTRIM DS TABLET) 1 Each Tablet 1 TAB PO BID, #20 TAB Prov: BE JAY APRN 03/10/19 BE JAY APRN Mar 10, 2019 12:35
[2019-03-10] MEDS ORDERED: SULF1TAB24 PO (12:41)
[2019-03-10] MEDS ORDERED: DIPHTH,PERTUSS(ACELL),TET TOX 0.5 ML DISP.SYRIN. VAX IM ONE (12:45)
[2019-03-10] MEDS ORDERED: ACYC800T PO (13:02)
== END 2019-03-10 13:01 | disposition home or self-care (01) ==
LOC: ER 11:44
DX: L02.31 Cutaneous abscess of buttock (principal); L03.317 Cellulitis of buttock; Z90.89 Acquired absence of other organs; Z91.013 Allergy to seafood
CPT/HCPCS: 90471; 90715; 99283

== ENCOUNTER 2019-09-25 15:37 | Emergency (ER) | payer OTHER ==
[~2019-09-25] VITALS: Ht 170.2 cm; Wt 90.9 kg
[~2019-09-25 15:37] MED LIST changes: +ACYC800T PO; +SULF1TAB24 PO
[2019-09-25 15:45] VITALS: BP 134/83
--- NOTE | 2019-09-25 16:04 | PHYS DOC ---
Past Medical History Past Medical History: No Pertinent History, Other Additional Past Medical Histor: TONSILITIS Past Surgical History: Tonsillectomy, Other Additional Past Surgical Histo: CYST REMOVED FROM THYROID Smoking Status: Never Smoker Alcohol Use: None Drug Use: None General Adult EDM: Chief Complaint: COUGH HPI: HPI: Patient is a 24 year old female without history of medical who presents with complaining of cough and rib pain. Patient states she was visiting a family member without positive COVID-19 at a [facility] with multiple coronavirus infection patients for the last 2 days has had a dry cough and rib cage pain during episode of cough. Patient complaining of nausea and several episodes of vomiting yesterday without having any vomiting today. Patient denies fever, headache, sore throat, shortness of breath. Review of Systems: Review of Systems: Constitutional: Denies fever or chills. [] Eyes: Denies change in visual acuity. [] HENT: Denies nasal congestion or sore throat. [] Respiratory: Reports cough Cardiovascular: Denies chest pain or edema. [] GI: Denies abdominal pain, bloody stools or diarrhea, reports nausea and vomiting. [] : Denies dysuria. [] Musculoskeletal: Denies back pain or joint pain. [] Integument: Denies rash. [] Neurologic: Denies headache, focal weakness or sensory changes. [] Endocrine: Denies polyuria or polydipsia. [] Lymphatic: Denies swollen glands. [] Psychiatric: Denies depression or anxiety. [] Heart Score: Risk Factors: Risk Factors: DM, Current or recent (<one month) smoker, HTN, HLP, family history of CAD, obesity. Risk Scores: Score 0 - 3: 2.5% MACE over next 6 weeks - Discharge Home Score 4 - 6: 20.3% MACE over next 6 weeks - Admit for Clinical Observation Score 7 - 10: 72.7% MACE over next 6 weeks - Early Invasive Strategies Allergies: Allergies: Allergies Coded Allergies Type Severity Reaction Last Updated Verified Fish Containing Products Allergy Intermediate 08/31/17 Yes shellfish derived Allergy Intermediate 08/31/17 Yes Physical Exam: PE: Constitutional: Well developed, well nourished, no acute distress, non-toxic appearance. [] HENT: Normocephalic, atraumatic, bilateral external ears normal, oropharynx moist, no oral exudates, nose normal. [] Eyes: PERRLA, EOMI, conjunctiva normal, no discharge. [] Neck: Normal range of motion, no tenderness, supple, no stridor. [] Cardiovascular:Heart rate regular rhythm, no murmur [] Lungs & Thorax: Bilateral breath sounds clear to auscultation [] Abdomen: Bowel sounds normal, soft, no tenderness, no masses, no pulsatile masses. [] Skin: Warm, dry, no erythema, no rash. [] Back: No tenderness, no CVA tenderness. [] Extremities: No tenderness, no cyanosis, no clubbing, ROM intact, no edema. [] Neurologic: Alert and oriented X 3, normal motor function, normal sensory function, no focal deficits noted. [] Psychologic: Affect anxious , judgement normal, mood normal. [] EKG: EKG: [] Radiology/Procedures: Radiology/Procedures: [facility] [address] [place], [place] [id number] IMAGING REPORT Signed PATIENT: TEJINDER PATEL ACCOUNT: [id number] : 1995 LOCATION: ER AGE: 24 SEX: F EXAM STATUS: PRE ER ORD. PHYSICIAN: OLE VIERA MD REASON: Exposure to COVID 19 patient PROCEDURE: CHEST AP ONLY Exam: Chest one view INDICATION: Exposure to CoVID patient TECHNIQUE: Frontal view of the chest Comparisons: None FINDINGS: The cardiomediastinal silhouette and pulmonary vessels are within normal limits. The lung and pleural spaces are clear. IMPRESSION: No acute cardiopulmonary process. Electronically signed by: Kayla Yee MD (09/25/2019 4:17 PM) [id number] DICTATED and SIGNED BY: KAYLA YEE MD DATE: 09/25/19 1617 Course & Med Decision Making: Course & Med Decision Making Pertinent Labs and Imaging studies reviewed. (See chart for details) Evaluation of patient inertial 24-year-old female patient with questionable contact with COVID 19 infection and complaining of cough and shortness of breath and nausea and vomiting. Patient had O2 sat of 100% with unremarkable physical exam. Chest x-ray was unremarkable. Patient was advised to quarantine at home and outpatient order for COVID 19 test was given. Monica Disclaimer: Monica Disclaimer: This electronic medical record was generated, in whole or in part, using a voice recognition dictation system. Departure Departure Impression: Primary Impression: Viral respiratory infection Additional Impression: Suspected 2019 novel coronavirus infection Disposition: HOME, SELF-CARE (At 1650) Condition: STABLE Referrals: NO PCP (PCP) Patient Instructions: Nausea and Vomiting, Viral Infections Additional Instructions: You have a viral syndrome which may include symptoms like muscle aches, fevers, chills, runny nose, cough, sneezing, sore throat, nausea, vomiting, or diarrhea. One of the potential viruses that you may have is SARS-CoV-2, the virus that causes COVID-19, also known as the Coronavirus. You are just as likely to have a different viral infection such as the common cold, flu, etc. Most patients with the Coronavirus have mild symptoms and recover on their own. Resting, staying hydrated, and sleep based on known cases can be helpful. As of todays visit, you are well enough to go home and treat your symptoms with oral fluids and over the counter medications. Coronavirus testing is not performed on most people with mild symptoms who are being discharged from the emergency department. If Coronavirus testing was performed today the results will not be available for possibly up to 3-4 days. If your result is positive you will be contacted. Please follow the following precautions at home: 1) Stay home except to get medical care. 2) As advised by the CDC, we recommend that you stay in your home and minimize contact with other people. We do not want you to spread the infection. 3) Those who are older or have significant medical issues may have more severe symptoms from this infection. We recommend self-isolation FOR AT LEAST 7 DAYS after your 1st day of symptoms. AFTER you feel better please wait AT LEAST ANOTHER WEEK before returning to regular activities and being around other people. 4) IF you become sicker and have difficulty breathing, chest pain, are unable to eat/drink, severe vomiting, diarrhea, or weakness you may need to return to the Emergency Department. 5) You should restrict activities outside of your home, except for getting medical care. DO NOT go to work, school, or public areas. Avoid using public transportation, ride sharing, or taxis. 6) Separate yourself from other people in your home. You should use a separate bathroom if possible. 7) Avoid sharing personal household items such as dishes, cups, eating utensils, towels, etc. 8) Clean all high touch surfaces every day (door knobs, counter tops, etc). Use a household cleaning spray or wipe per label instructions. 9) Clean your hands often. Wash your hands with soap and water for at least 20 seconds. 10) Cover your mouth and nose when you cough or sneeze. 11) Throw used tissues in the trash and immediately wash your hands. For additional resources please visit the CDC website or the [facility] ([phone]), you may also call 311 for further information. Thank you for visiting [facility]. We appreciate you trusting us with your care. If any additional problems come up don't hesitate to return to visit us. Please follow up with your primary care provider so they can plan additional care if needed and know about the problem that you had. If symptoms worsen come back to the Emergency Department. Any concerning symptoms that start such as chest pain, shortness of air, weakness or numbness on one side of the body, running high fevers or any other concerning symptoms return to the ER. Scripts [COVID-19 test] No Conflict Check Prov: OLE VIERA MD 09/25/19 Ondansetron Hcl (ZOFRAN) 4 Mg Tablet 1 TAB PO PRN Q6-8HRS for nausea, #12 TAB Prov: OLE VIERA MD 09/25/19 COVID-19 Assessment: COVID-19 Patient Risks: Age 65 or older: No Sign of co-morbidity: No Exp to person + for COVID: Yes Travel from affected area: No Lower respiratory symptoms: No Fever: No Other: No PPE Use: Full PPE with N95 mask or PAPR: Yes OLE VIERA MD Sep 25, 2019 16:04
--- NOTE | 2019-09-25 16:20 | RAD ---
Exam: Chest one view INDICATION: Exposure to CoVID patient TECHNIQUE: Frontal view of the chest Comparisons: None FINDINGS: The cardiomediastinal silhouette and pulmonary vessels are within normal limits. The lung and pleural spaces are clear. IMPRESSION: No acute cardiopulmonary process. Electronically signed by: Kayla Schwab MD (09/25/2019 4:17 PM) [id number]
[2019-09-25 16:33] LABS: INFLUENZA A PATIENT NEGATIVE (NEGATIVE); INFLUENZA B PATIENT NEGATIVE (NEGATIVE)
[2019-09-25] MEDS ORDERED: ONDA4TAB7 PO (16:53)
[2019-09-25] MEDS ORDERED: [UNRECOGNIZED DRUG - OTHER] (16:53)
== END 2019-09-25 17:10 | disposition home or self-care (01) ==
LOC: ER 15:37
DX: Z20.828 Contact with and (suspected) exposure to other viral communicable diseases (principal); B34.9 Viral infection, unspecified; Z91.013 Allergy to seafood
CPT/HCPCS: 71045; 87804; 99283; 99284

== ENCOUNTER 2021-01-18 17:37 | Emergency (ER) | payer OTHER ==
[~2021-01-18 17:37] MED LIST changes: -ACYC800T PO; +ACYC800T88 PO; +ONDA4TAB7 PO; +[UNRECOGNIZED DRUG - OTHER]
== END 2021-01-18 18:48 | disposition left against medical advice (07) ==
LOC: ER 17:37
DX: R51.9 Headache, unspecified (principal); Z53.21 Procedure and treatment not carried out due to patient leaving prior to being seen by health care provider

== ENCOUNTER 2021-08-14 13:09 | Emergency (ER) | payer OTHER ==
[2021-01-20 15:00] VITALS: BP 109/56
== END 2021-08-14 13:57 | disposition left against medical advice (07) ==
LOC: ER 13:09
DX: N93.9 Abnormal uterine and vaginal bleeding, unspecified (principal); Z53.21 Procedure and treatment not carried out due to patient leaving prior to being seen by health care provider